=== PATIENT | female | born 1960 | race African-American/Black ===

== ENCOUNTER 2022-12-25 17:10 | Inpatient (IN) | payer OTHER ==
[2022-12-25 19:13] VITALS: BMI 17.2
[2022-12-25] MEDS ORDERED: POLYETHYLENE GLYCOL (HEALTHYLAX) 3350 17 GM PACKET PO PRN (22:16)
[2022-12-25] MEDS ORDERED: ONDANSETRON *ODT* 4 MG TABLET SL PRN (22:16)
[2022-12-25] MEDS ORDERED: MAG HYDROX/AL HYDROX/SIMETH 30 ML UNIT-DOSE CUP PO PRN (22:16)
[2022-12-25] MEDS ORDERED: ACETAMINOPHEN 325 MG TABLET (FP) PO PRN (22:16)
[2022-12-25] MEDS ORDERED: LOPERAMIDE HCL 2 MG CAPSULE PO PRN (22:16)
[2022-12-25] MEDS ORDERED: guaiFENesin 600 MG TABLET.ER (FP) PO PRN (22:16)
[2022-12-25] MEDS ORDERED: METHOCARBAMOL 500 MG TABLET PO PRN (22:16)
[2022-12-25] MEDS ORDERED: BENZONATATE 200 MG CAPSULE PO PRN (22:16)
[2022-12-25] MEDS ORDERED: BENZOCAINE/MENTHOL (CHLORASEPTIC ) LOZENGE MM PRN (22:16)
[2022-12-25] MEDS ORDERED: IBUPROFEN 400 MG TABLET (FP) PO PRN (22:16)
[2022-12-25] MEDS ORDERED: BISMUTH SUBSALICYLATE 524 MG/30 ML PO PRN (22:16)
[2022-12-25] MEDS ORDERED: IBUPROFEN 600 MG TABLET (FP) PO PRN (22:16)
[2022-12-25] MEDS ORDERED: DICYCLOMINE HCL 10 MG CAPSULE PO PRN (22:16)
[2022-12-25] MEDS ORDERED: NALOXONE HCL (KLOXXADO) 8 MG SPRAY NS PRN (22:16)
[2022-12-25] MEDS ORDERED: MAGNESIUM HYDROX 2400MG/30ML ORAL SUSPENSION 30 ML CUP PO PRN (22:16)
[2022-12-25] MEDS ORDERED: NALOXONE HCL 0.4 MG/ML VIAL IM PRN (22:16)
[2022-12-26] MEDS: NICOTINE 14 MG/24 HOURS TOPICAL PATCH TD SCH (09:49)
[2022-12-26] MEDS: PRENATAL VITAMINS W/ FOLIC ACID TABLET (FP) PO SCH (09:49)
[2022-12-26] MEDS ORDERED: diazePAM 5 MG TABLET PO PRN (10:49)
[2022-12-26] MEDS: amLODIPine BESYLATE 5 MG TABLET (FP) PO SCH (11:34)
[2022-12-26] MEDS: diazePAM 5 MG TABLET PO SCH ×3 (11:34→22:31)
[2022-12-26] MEDS ORDERED: methaDONE HCL 10 MG TABLET PO ONE (14:46)
[2022-12-26] MEDS ORDERED: methaDONE 80 MG, methaDONE 20 MG PO ONE (15:03)
[2022-12-26] MEDS: THIAMINE HCL 100 MG TABLET (FP) PO SCH (22:31)
[2022-12-26] MEDS: MELATONIN 5 MG TABLETS PO SCH (22:31)
[2022-12-27] MEDS ORDERED: methaDONE HCL 10 MG TABLET PO SCH (06:00)
[2022-12-27] MEDS: methaDONE 80 MG, methaDONE 20 MG PO SCH (06:13)
[2022-12-27] MEDS: diazePAM 5 MG TABLET PO SCH ×4 (06:13→22:11)
[2022-12-27] MEDS: NICOTINE 14 MG/24 HOURS TOPICAL PATCH TD SCH (10:46)
[2022-12-27] MEDS: PRENATAL VITAMINS W/ FOLIC ACID TABLET (FP) PO SCH (10:46)
[2022-12-27] MEDS: amLODIPine BESYLATE 5 MG TABLET (FP) PO SCH (10:49)
[2022-12-27] MEDS ORDERED: cloNIDine HCL 0.1 MG TABLET PO PRN (11:43)
[2022-12-27] MEDS: NICOTINE 10 MG CARTRIDGE (INHALER) IH PRN ×2 (12:44→22:13)
[2022-12-27] MEDS: MELATONIN 5 MG TABLETS PO SCH (22:10)
[2022-12-27] MEDS: THIAMINE HCL 100 MG TABLET (FP) PO SCH (22:10)
[2022-12-28] MEDS: diazePAM 5 MG TABLET PO SCH ×3 (05:52→22:38)
[2022-12-28] MEDS: methaDONE 80 MG, methaDONE 20 MG PO SCH (05:52)
[2022-12-28] MEDS: NICOTINE 10 MG CARTRIDGE (INHALER) IH PRN ×2 (09:36→22:39)
[2022-12-28] MEDS: amLODIPine BESYLATE 5 MG TABLET (FP) PO SCH (10:25)
[2022-12-28] MEDS: NICOTINE 14 MG/24 HOURS TOPICAL PATCH TD SCH (10:25)
[2022-12-28] MEDS: PRENATAL VITAMINS W/ FOLIC ACID TABLET (FP) PO SCH (10:25)
[2022-12-28] MEDS: THIAMINE HCL 100 MG TABLET (FP) PO SCH (22:38)
[2022-12-28] MEDS: MELATONIN 5 MG TABLETS PO SCH (22:38)
[2022-12-29] MEDS: methaDONE 80 MG, methaDONE 20 MG PO SCH (06:17)
[2022-12-29] MEDS: diazePAM 5 MG TABLET PO SCH ×2 (06:18→17:01)
[2022-12-29] MEDS: amLODIPine BESYLATE 5 MG TABLET (FP) PO SCH (10:09)
[2022-12-29] MEDS: NICOTINE 14 MG/24 HOURS TOPICAL PATCH TD SCH (10:09)
[2022-12-29] MEDS: PRENATAL VITAMINS W/ FOLIC ACID TABLET (FP) PO SCH (10:10)
[2022-12-29] MEDS: NICOTINE 10 MG CARTRIDGE (INHALER) IH PRN (18:53)
[2022-12-29] MEDS: THIAMINE HCL 100 MG TABLET (FP) PO SCH ×2 (22:13→22:31)
[2022-12-29] MEDS: MELATONIN 5 MG TABLETS PO SCH ×2 (22:13→22:31)
[2022-12-30] MEDS: methaDONE 80 MG, methaDONE 20 MG PO SCH (05:59)
[2022-12-30] MEDS ORDERED: diazePAM 5 MG TABLET PO ONE (06:00)
[2022-12-30 09:39] VITALS: BP 145/84; PULSE 57; RESP 18; TEMP 97.5
[2022-12-30] MEDS: NICOTINE 10 MG CARTRIDGE (INHALER) IH PRN (10:40)
[2022-12-30] MEDS: NICOTINE 14 MG/24 HOURS TOPICAL PATCH TD SCH (10:43)
[2022-12-30] MEDS: amLODIPine BESYLATE 5 MG TABLET (FP) PO SCH (10:43)
[2022-12-30] MEDS: PRENATAL VITAMINS W/ FOLIC ACID TABLET (FP) PO SCH (10:44)
== END 2022-12-30 11:49 | disposition home or self-care (01) | DRG 773 ==
LOC: YASAS 17:10 → Y6N 22:12 → UNDOADMIN 22:12
PROVIDERS: ADMIT Allergy & Immunology; ATTEND Surgery
PROC: HZ2ZZZZ Detoxification Services for Substance Abuse Treatment (ICD-10-PCS; principal; 2022-12-25)
DX: F10.230 Alcohol dependence with withdrawal, uncomplicated (principal); F11.20 Opioid dependence, uncomplicated; F14.20 Cocaine dependence, uncomplicated; F17.210 Nicotine dependence, cigarettes, uncomplicated; F41.9 Anxiety disorder, unspecified; F32.A Depression, unspecified; I10 Essential (primary) hypertension
CPT/HCPCS: 81025; 87635; 93005; 93010